=== PATIENT | male | born 1945 | race African-American/Black ===

== ENCOUNTER 2019-09-10 14:23 | Emergency (ER) | payer BC ==
[~2019-09-10] VITALS: Ht 165.1 cm; Wt 100.0 kg
[2019-09-10 14:42] VITALS: BP 121/88
[2019-09-10] MEDS ORDERED: METF-414 PO (14:47)
[2019-09-10] MEDS ORDERED: SIMV-43 PO (14:47)
[2019-09-10] MEDS ORDERED: FLUORESCEIN SODIUM 1MG/STRIP EACHEYE ONE (15:00)
[2019-09-10] MEDS ORDERED: TETRACAINE 0.5% OPHTH DROPS 4ML BOTHEYE ONE (15:15)
== END 2019-09-10 16:13 | disposition home or self-care (01) ==
LOC: ER 14:23
DX: Z77.098 Contact with and (suspected) exposure to other hazardous, chiefly nonmedicinal, chemicals (principal); Z57.4 Occupational exposure to toxic agents in agriculture; E11.9 Type 2 diabetes mellitus without complications; E78.00 Pure hypercholesterolemia, unspecified; I10 Essential (primary) hypertension; Z85.3 Personal history of malignant neoplasm of breast; Z85.46 Personal history of malignant neoplasm of prostate; Z90.79 Acquired absence of other genital organ(s); Z90.49 Acquired absence of other specified parts of digestive tract; Z98.890 Other specified postprocedural states; Z79.84 Long term (current) use of oral hypoglycemic drugs
CPT/HCPCS: 99283

== ENCOUNTER 2025-04-23 04:16 | Emergency (ER) | payer BC, MEDICARE, OTHER ==
[~2025-04-23] VITALS: Ht 160 cm; Wt 91.0 kg
[~2025-04-23 04:16] MED LIST: METF-414 PO; SIMV-43 PO
[2025-04-23 04:26] VITALS: O2SAT 97
[2025-04-23 05:41] LABS: BASOPHILS % 0.3 % (0.0-2.0); EOSINOPHILS % 2.0 % (0.0-5.0); HEMATOCRIT. 42.3 % (42.0-52.0); HEMOGLOBIN. 13.8 g/dL (14.0-18.0); LYMPHOCYTES % 18.9 % (20.0-50.0); MEAN PLATELET VOLUME 8.2 fl (7.4-10.4); MONOCYTES % 8.2 % (2.0-8.0); NEUTROPHILS % 70.6 % (40.0-76.0); PLATELET 224 x1000/uL (130-400); RED BLOOD CELL COUNT 5.07 mill/uL (4.7-6.1); RED CELL DISTRIBUTION WIDTH 14.3 % (11.6-14.6)
[2025-04-23 05:49] LABS: CREATININE 1.2 mg/dL (0.6-1.3); UREA NITROGEN BLOOD 15 mg/dL (9-23)
[2025-04-23 05:50] LABS: PROTEIN TOTAL 7.4 g/dL (6.0-8.3)
[2025-04-23 05:51] LABS: ASPARTATE AMINOTRANSFERASE 17 IU/L (<34); BILIRUBIN DIRECT < 0.1 mg/dL (<=3.0); BILIRUBIN TOTAL 0.4 mg/dL (0.1-1.0)
[2025-04-23] MEDS: MAGNESIUM/ALUMINUM HYDROXIDE/SIMETHICONE 30ML UDC PO ONE (07:03)
[2025-04-23] MEDS: VISCOUS LIDOCAINE 2% 15 ML UDC MM ONE (07:03)
[2025-04-23] MEDS: FAMOTIDINE 20MG TABLET PO ONE (07:04)
[2025-04-23] MEDS ORDERED: TOPUD PO (07:17)
[2025-04-23 07:25] VITALS: BP 124/68; PULSE 92; RESP 18; TEMP 36.7; O2SAT 98
[2025-04-23] MEDS: BELLADONNA ALK/PHENOBARB 16.2MG/5ML ORAL SYR PO ONE (07:30)
== END 2025-04-23 07:32 | disposition home or self-care (01) ==
LOC: ER 04:16
DX: R19.7 Diarrhea, unspecified (principal); E11.9 Type 2 diabetes mellitus without complications; I10 Essential (primary) hypertension
CPT/HCPCS: 36415; 80048; 80076; 85025; 93005; 99284